=== PATIENT | female | born 1975 | race Caucasian/White ===

== ENCOUNTER 2017-06-12 12:31 | Outpatient (CLI) | payer BC ==
--- NOTE | 2017-06-12 13:07 | RAD ---
PA AND LATERAL CHEST: History: Cough. FINDINGS: The heart size is normal. The lungs are well expanded and clear. The bony thorax is unremarkable. IMPRESSION: Normal exam. POS: OFF
== END 2017-06-12 12:32 | disposition home or self-care (01) ==
LOC: RAD 12:31
PROVIDERS: ATTEND Otolaryngology Plastic Surgery within the Head & Neck
DX: R05 Cough (principal)
CPT/HCPCS: 71046

== ENCOUNTER 2017-06-22 14:50 | Outpatient (CLI) | payer BC | END 2017-06-22 14:51 | disposition home or self-care (01) | LOC: BICMAMMO 14:50 | PROVIDERS: ATTEND Obstetrics & Gynecology | DX: Z12.31 Encounter for screening mammogram for malignant neoplasm of breast (principal); N63.20 Unspecified lump in the left breast, unspecified quadrant | CPT/HCPCS: 77063; 77067 ==